=== PATIENT | female | born 2005 | race Caucasian/White ===

== ENCOUNTER 2025-06-17 14:58 | Emergency (ER) | payer BC ==
[2025-06-17 15:28] LABS: APPEARANCE,URINE CLEAR; GLUCOSE,URINE NEGATIVE (NEGATIVE); OCCULT BLOOD,URINE NEGATIVE (NEGATIVE)
== END 2025-06-17 16:30 | disposition home or self-care (01) ==
LOC: MW.ED 14:58
DX: R10.2 Pelvic and perineal pain (principal); Z75.3 Unavailability and inaccessibility of health-care facilities; Z88.8 Allergy status to other drugs, medicaments and biological substances; Z79.899 Other long term (current) drug therapy
CPT/HCPCS: 76830; 76830-26; 81003; 81025; 99283; 99284